=== PATIENT | male | born 1960 | race Caucasian/White ===

== ENCOUNTER 2018-09-06 10:00 | Emergency (ER) | payer OTHER ==
[2018-09-06 10:22] VITALS: BP 148/81
--- NOTE | 2018-09-06 11:56 | UC ---
Knee Pain HPI - HPI Summary HPI Summary: 58 year old male comes in with a chief complaint of left knee pain. Pain started at work yesterday during his normal activities at work. The knee is swollen. Pain is worse with trying to bend it and also with any kind of weightbearing. No complaint of any numbness or weakness. No plan of ankle or hip pain. - History of Current Complaint Chief Complaint: UCLowerExtremity Stated Complaint: KNEE INJURY Time Seen by Provider: 09/06/18 11:06 Pain Intensity: 7 - Allergies/Home Medications Allergies/Adverse Reactions: Allergies Allergy/AdvReac Type Severity Reaction Status Date / Time No Known Allergies Allergy Verified 09/06/18 10:21 Home Medications: Home Medications Lisinopril 20 mg PO 09/06/18 [History] Lovastatin [Altoprev] 20 mg PO 09/06/18 [History] Omeprazole 40 mg PO 09/06/18 [History] PMH/Surg Hx/FS Hx/Imm Hx Previously Healthy: Yes Endocrine History: Dyslipidemia Cardiovascular History: Hypertension GI/ History: Gastroesophageal Reflux - Surgical History Surgical History: None - Family History Known Family History: Positive: Non-Contributory - Social History Alcohol Use: Weekly Substance Use Type: None Smoking Status (MU): Never Smoked Tobacco Review of Systems All Other Systems Reviewed And Are Negative: Yes Constitutional: Positive: Negative Eyes: Positive: Negative ENT: Positive: Negative Respiratory: Positive: Negative Cardiovascular: Positive: Negative Gastrointestinal: Positive: Negative Motor: Positive: Other - SEE HPI Neurovascular: Positive: Negative Musculoskeletal: Positive: Other: - SEE HPI Neurological: Positive: Negative Psychological: Positive: Negative Is Patient Immunocompromised?: No Physical Exam Triage Information Reviewed: Yes Appearance: Well-Appearing, No Pain Distress, Well-Nourished Vital Signs: Initial Vital Signs Temp 99.4 F 09/06/18 10:18 Pulse 59 09/06/18 10:18 Resp 18 09/06/18 10:18 BP 148/81 09/06/18 10:18 Pulse Ox 98 09/06/18 10:18 Vital Signs Reviewed: Yes Eye Exam: Normal Eyes: Positive: Conjunctiva Clear Neck: Positive: Supple Respiratory: Positive: No respiratory distress Musculoskeletal: Positive: Other: - LEFT KNEE POSITIVE EFFUSION. TENDER ANTERIOR MEDIAL ASPECT. MILD PAIN WITH GRETA'S.NL SENSATION. Neurological: Positive: Alert Psychological Exam: Normal Psychological: Positive: Normal Response To Family, Age Appropriate Behavior Skin Exam: Normal Knee Pain Course/Dx - Course Course Of Treatment: Patient Name: KIARA ROSAS Medical Record#: [id number] Ordering Physician: Laura Mercado [employer] HEL[employer] Acct.#: [id number] : 1960 Age: 58 Sex: M Location: [facility] Exam Date: 09/06/18 ADM Status: REG REF Order Information: KNEE LEFT 4+ VWS Accession Number: [id number] CPT: 38489 INDICATION: Left knee injury. TECHNIQUE: 4 views of the left knee were obtained. FINDINGS: The bones are normal alignment. There is a joint effusion present. No fracture is seen. Joint spaces appear maintained. IMPRESSION: JOINT EFFUSION, NO FRACTURE IS SEEN. IF THE PATIENT'S SYMPTOMS PERSIST RECOMMEND FOLLOW-UP IMAGING. <Electronically signed by Leroy Valadez MD in OV> 09/06/18 2138 I discussed the x-rays with the patient. Patient does have an effusion. Because the effusion I'm concerned for the possibility of internal derangement. Patient was placed in a knee immobilizer here by nursing and neurovascular intact after placement of the knee immobilizer. Also crutches were given and the plan is to follow-up with sports medicine or orthopedics. We'll also take ibuprofen and ice it and rest. - Differential Dx/Diagnosis Provider Diagnosis: Effusion, left knee, Left knee pain Discharge - Sign-Out/Discharge Documenting (check all that apply): Patient Departure All imaging exams completed and their final reports reviewed: Yes - Discharge Plan Condition: Stable Disposition: HOME Patient Education Materials: Crutch Instructions (ED), Swollen Knee Joint (ED) , Knee Pain (ED) Forms: *Work Release Referrals: Laura Mercado [Primary Care Provider] - Lisa Rueda MD [Medical Doctor] - [facility] [Provider Group] Additional Instructions: FOLLOW UP WITH SPORTS MEDICINE OR ORTHOPEDICS. GET RECHECKED SOONER IF YOUR CONDITION WORSENS OR ANY QUESTIONS OR CONCERNS. - Billing Disposition and Condition Condition: STABLE Disposition: Home
== END 2018-09-06 12:20 | disposition home or self-care (01) ==
LOC: UCEAST 10:00
DX: M25.562 Pain in left knee (principal); M25.462 Effusion, left knee; E78.5 Hyperlipidemia, unspecified; I10 Essential (primary) hypertension; K21.9 Gastro-esophageal reflux disease without esophagitis
CPT/HCPCS: 99201; G0463